=== PATIENT | female | born 1940 | race Caucasian/White ===

== ENCOUNTER 2024-06-12 14:24 | Inpatient (IN) ==
[2024-06-12] MEDS ORDERED: Morphine ORAL CONCENTRATE 5 MG/0.25 ML ORAL.SYRIN SL PRN (16:46)
[2024-06-12 19:57] VITALS: BP 146/81
[2024-06-12] MEDS: Albuterol/Ipratropium NEB.SOL (2.5/0.5 MG) 3 ML NEB.SOLN INH SCH (21:47)
[2024-06-13] MEDS: Albuterol/Ipratropium NEB.SOL (2.5/0.5 MG) 3 ML NEB.SOLN INH SCH ×2 (10:47→13:25)
[2024-06-14] MEDS: Bismuth Subsalicylate (BTL) 525 MG/30 ML (BULK BTL) PO PRN (11:56)
[2024-06-16] MEDS: Albuterol/Ipratropium NEB.SOL (2.5/0.5 MG) 3 ML NEB.SOLN INH PRN (08:04)
== END 2024-06-18 14:40 | disposition hospice, inpatient (51) | DRG 136 ==
LOC: EDHOLD 14:24 → ED 14:24 → SUATTDRO 15:46 → OBSVTOIN 15:46 → MED 18:03
PROVIDERS: ADMIT Student in an Organized Health Care Education/Training Program; ATTEND Internal Medicine